=== PATIENT | female | born 1960 | race Caucasian/White ===

== ENCOUNTER 2020-02-14 16:49 | Inpatient (IN) | payer OTHER ==
[~2020-02-14] VITALS: Ht 157.5 cm; Wt 62.7 kg
[2020-02-14 17:30] VITALS: BP 125/70
--- NOTE | 2020-02-14 17:49 | NUR ---
RECEIVED PT FROM ADMISSIONS. PT IS AAO AND UP AD LISANDRO. PT ORIENTED TO ROOM. QUICKSTART, MED REQ, AND HISTORY COMPLETE. 2L 02 APPLIED. VSS AND WNL. NO S/S OF DISTRESS NOTED. PT DENIES ANY NEEDS. R.AC 20GA STARTED X1 ATTEMPT. PT TOLERATED WELL. WILL CTM.
[2020-02-14 18:27] LABS: CALC OSMOLALITY 275 mosm/kg (275-300); CALCIUM 8.9 mg/dL (8.5-10.1); CARBON DIOXIDE 27.6 mmol/L (21.0-32.0); CHLORIDE - SERUM 102 mmol/L (98-107); CREATININE - SERUM 0.8 mg/dL (0.6-1.3); GLUCOSE 112 mg/dL (74-106); POTASSIUM - SERUM 3.8 mmol/L (3.5-5.1); SODIUM 138 mmol/L (136-145); UREA NITROGEN 11 mg/dL (7-18); eGFR NON AFRICAN AMERICAN 78 mL/min (90-120)
[2020-02-14 18:37] LABS: BASOPHILS 0.2 % (0-2); EOSINOPHILS 0.6 % (0-7); HEMATOCRIT 46.1 % (36.0-48.0); HEMOGLOBIN 15.3 g/dL (12-16); IMMATURE GRANULOCYTES 0.2 % (0-5); LYMPHOCYTES 14.6 % (15-50); MCH 31.9 pg (26.0-34.0); MCHC 33.2 g/dL (31.0-37.0); MCV 96.2 fL (80.0-100.0); MEAN PLATELET VOLUME 9.7 fL (7.4-10.4); MONOCYTES 10.6 % (2-11); NEUTROPHILS 73.8 % (40-80); PLATELET COUNT 260 10x3/uL (130-400); RBC 4.79 10x6/uL (4.00-5.40); RDW 12.6 % (11.5-14.5)
[2020-02-14 18:44] LABS: ALBUMIN 3.4 g/dL (3.4-5.0); ALKALINE PHOSPHATASE 90 U/L (30-120); ALT (SGPT) 29 U/L (10-68); BILIRUBIN - TOTAL 0.45 mg/dL (0.2-1.3); CREATINE KINASE 200 UL (21-215); PROTEIN - SERUM 7.5 g/dL (6.4-8.2); TROPONIN-I 0.048 ng/mL (0.000-0.060)
--- NOTE | 2020-02-14 19:45 | NUR ---
PT SITTING UP ON SIDE OF BED NO SIGNS OF DISTRESS NOTED. SOME NON PRODUCTIVE COUGH. RESPIRATIONS EVEN AND UNLABORED. CALL LIGHT WITH IN REACH. NO COMPLAINTS AT THIS TIME. WILL CONTINUE TO MONITOR
[2020-02-14 20:27] VITALS: BP 114/61
[2020-02-15 03:45] VITALS: BP 115/83
[2020-02-15 03:50] LABS: BILIRUBIN NEGATIVE (NEGATIVE); GLUCOSE NEGATIVE (NEGATIVE); KETONE NEGATIVE (NEGATIVE); NITRITE NEGATIVE (NEGATIVE); SPECIFIC GRAVITY 1.005 (1.005-1.020); UROBILINOGEN NORMAL (NORMAL)
--- NOTE | 2020-02-15 05:21 | NUR ---
PT C/O NAUSEA PRN ZOFRAN GIVEN CALL LIGHT WITH IN REACH WILL CONTINUE TO MONITOR. UA COLLECTED AND SENT TO LAB
[2020-02-15 06:47] LABS: BASOPHILS 0.2 % (0-2); EOSINOPHILS 0.2 % (0-7); HEMATOCRIT 42.3 % (36.0-48.0); HEMOGLOBIN 14.3 g/dL (12-16); IMMATURE GRANULOCYTES 0.2 % (0-5); LYMPHOCYTES 11.8 % (15-50); MCH 32.2 pg (26.0-34.0); MCHC 33.8 g/dL (31.0-37.0); MCV 95.3 fL (80.0-100.0); MEAN PLATELET VOLUME 9.5 fL (7.4-10.4); MONOCYTES 10.3 % (2-11); NEUTROPHILS 77.3 % (40-80); PLATELET COUNT 253 10x3/uL (130-400); RBC 4.44 10x6/uL (4.00-5.40); RDW 12.6 % (11.5-14.5); WBC 12.9 10x3/uL (4.8-10.8)
--- NOTE | 2020-02-15 07:10 | NUR ---
REPORT RECEIVED FROM HOSPITAL MEDICINE DIRECTOR AND PATIENT CARE ASSUMED. PATIENT LAYING IN BED AWAKE, ALERT AND ORIENTED X 4. PATIENT DENIES ANY NEEDS OR PAIN. WILL CONTINUE WITH PLAN OF CARE, SR UPX 2 BED IN LOW POSITION AND CALL LIGHT IN REACH.
[2020-02-15 07:21] LABS: CALC OSMOLALITY 277 mosm/kg (275-300); CALCIUM 8.2 mg/dL (8.5-10.1); CARBON DIOXIDE 25.1 mmol/L (21.0-32.0); CHLORIDE - SERUM 104 mmol/L (98-107); CREATININE - SERUM 0.7 mg/dL (0.6-1.3); GLUCOSE 118 mg/dL (74-106); MAGNESIUM - SERUM 1.9 mg/dL (1.8-2.4); PHOSPHOROUS 3.2 mg/dL (2.5-4.9); POTASSIUM - SERUM 3.5 mmol/L (3.5-5.1); SODIUM 140 mmol/L (136-145); THYROID STIMULATING HORMONE 0.63 uIU/mL (0.36-3.74); eGFR NON AFRICAN AMERICAN > 90 mL/min (90-120)
[2020-02-15 07:23] LABS: UREA NITROGEN 8 mg/dL (7-18)
[2020-02-15 10:25] VITALS: BP 104/49
[2020-02-15 12:36] VITALS: Ht 157.5 cm; Wt 62.7 kg
[2020-02-15 12:50] VITALS: BP 98/58
--- NOTE | 2020-02-15 18:00 | NUR ---
PATIENT UNCHANGED. PATIENT DENIES ANY NEEDS OR PAIN. WILL CONTINUE TO MONITOR. SR UP X 2 BED IN LOW POSITION AND CALL LIGHT IN REACH.
--- NOTE | 2020-02-15 19:33 | NUR ---
RECEIVED UP IN BED WITH EYES OPEN AND TV ON. STATED " I FEEL BETTER NOW". RESP EVEN AND UNLABORED. DOES BECOME SOB WHEN SPEAKING. O2@ 4 LITERS PER NC. IV TO LT HAND WITH D5 AT 100CC/HR. ALERT AND ORIENTED. UP AD LISANDRO TO B/R. SAID SHE GETS SOB WITH AMBULATION. DENIES WEARING O2@ HOME. TELEMETRY IN PLACE.
[2020-02-15 20:53] VITALS: BP 114/64
[2020-02-16 02:39] VITALS: BP 99/71
[2020-02-16 06:09] LABS: BASOPHILS 0.2 % (0-2); EOSINOPHILS 1.8 % (0-7); HEMATOCRIT 39.5 % (36.0-48.0); HEMOGLOBIN 13.2 g/dL (12-16); IMMATURE GRANULOCYTES 0.2 % (0-5); LYMPHOCYTES 20.2 % (15-50); MCH 31.7 pg (26.0-34.0); MCHC 33.4 g/dL (31.0-37.0); MEAN PLATELET VOLUME 9.5 fL (7.4-10.4); MONOCYTES 11.6 % (2-11); PLATELET COUNT 274 10x3/uL (130-400); RBC 4.16 10x6/uL (4.00-5.40); RDW 12.9 % (11.5-14.5); WBC 9.7 10x3/uL (4.8-10.8)
[2020-02-16 06:18] LABS: CALC OSMOLALITY 279 mosm/kg (275-300); CALCIUM 8.2 mg/dL (8.5-10.1); CARBON DIOXIDE 25.7 mmol/L (21.0-32.0); CHLORIDE - SERUM 106 mmol/L (98-107); CREATININE - SERUM 0.4 mg/dL (0.6-1.3); GLUCOSE 116 mg/dL (74-106); MAGNESIUM - SERUM 2.1 mg/dL (1.8-2.4); PHOSPHOROUS 3.4 mg/dL (2.5-4.9); POTASSIUM - SERUM 3.5 mmol/L (3.5-5.1); SODIUM 141 mmol/L (136-145); UREA NITROGEN 7 mg/dL (7-18); eGFR NON AFRICAN AMERICAN > 90 mL/min (90-120)
--- NOTE | 2020-02-16 08:00 | NUR ---
PT SITTING UP IN BED. RR EVEN AND UNLABORED. DENIES NEEDS OR PAIN AT THIS TIME. CALL LIGHT WITHIN REACH. BED IN LOWEST POSITION. ASSESSMENT COMPLETE. WILL CONTINUE TO MONITOR.
[2020-02-16 09:17] VITALS: BP 99/60
[2020-02-16 11:57] VITALS: BP 101/64
--- NOTE | 2020-02-16 18:46 | NUR ---
CALL RECIEVED FROM MONICA SCHULTZ, PT IS NEGATIVE FOR COVID. TRANSFERED TO 2106
--- NOTE | 2020-02-16 18:54 | NUR ---
I have reviewed this patient and I concur with the Shift Assessment completed by the Licensed Practical Nurse today this shift.
[2020-02-16 20:00] VITALS: BP 122/74
[2020-02-17 04:00] VITALS: BP 99/52
[2020-02-17 05:15] LABS: BASOPHILS 0.3 % (0-2); EOSINOPHILS 1.7 % (0-7); HEMATOCRIT 37.5 % (36.0-48.0); HEMOGLOBIN 12.5 g/dL (12-16); IMMATURE GRANULOCYTES 0.1 % (0-5); LYMPHOCYTES 18.8 % (15-50); MCH 31.8 pg (26.0-34.0); MCHC 33.3 g/dL (31.0-37.0); MCV 95.4 fL (80.0-100.0); MEAN PLATELET VOLUME 9.5 fL (7.4-10.4); MONOCYTES 9.6 % (2-11); NEUTROPHILS 69.5 % (40-80); PLATELET COUNT 318 10x3/uL (130-400); RBC 3.93 10x6/uL (4.00-5.40); RDW 12.5 % (11.5-14.5); WBC 8.7 10x3/uL (4.8-10.8)
[2020-02-17 05:52] LABS: CALCIUM 8.3 mg/dL (8.5-10.1); CARBON DIOXIDE 25.1 mmol/L (21.0-32.0); CHLORIDE - SERUM 106 mmol/L (98-107); GLUCOSE 123 mg/dL (74-106); MAGNESIUM - SERUM 2.1 mg/dL (1.8-2.4); PHOSPHOROUS 3.4 mg/dL (2.5-4.9); POTASSIUM - SERUM 3.1 mmol/L (3.5-5.1); SODIUM 142 mmol/L (136-145)
[2020-02-17 05:54] LABS: CREATININE - SERUM 0.7 mg/dL (0.6-1.3); eGFR NON AFRICAN AMERICAN > 90 mL/min (90-120)
[2020-02-17 06:09] LABS: CALC OSMOLALITY 282 mosm/kg (275-300)
[2020-02-17 06:11] LABS: UREA NITROGEN 9 mg/dL (7-18)
--- NOTE | 2020-02-17 07:09 | NUR ---
RECEIVED REPORT. ASSUMED CARE OF PATIENT. CALL LIGHT WITHIN REACH. SR ON TELEMETRY, RATE 68.
[2020-02-17 10:35] VITALS: BP 115/60
--- NOTE | 2020-02-17 11:28 | NUR ---
PATIENT AMBULATING AROUND ROOM. NO DISTRESS. CALL LIGHT WITHIN REACH. RESP EVEN AND UNLABORED.
--- NOTE | 2020-02-17 14:41 | NUR ---
LINENS CHANGED, SHOWER COMPLETE. NO DISTRESS. CALL LIGHT WITHIN REACH.
--- NOTE | 2020-02-17 17:34 | NUR ---
SITTING IN BED, PM MEAL CONSUMED. DENIES NEEDS AT THIS TIME. NO DISTRESS.
--- NOTE | 2020-02-17 19:15 | NUR ---
RECEIVED REPORT, WILL ASSUME CARE OF PT, WATCHING TV, DENIES ANY NEEDS, BED IS LOW, SRX2, CALL LIGHT IN REACH, WILL CONTINUE PLAN OF CARE
[2020-02-17 20:00] VITALS: BP 113/69
[2020-02-18] VITALS: BP 119/70
[2020-02-18 04:00] VITALS: BP 113/65
[2020-02-18 06:32] LABS: BASOPHILS 0.2 % (0-2); EOSINOPHILS 0 % (0-7); HEMATOCRIT 37.5 % (36.0-48.0); HEMOGLOBIN 12.8 g/dL (12-16); IMMATURE GRANULOCYTES 0.5 % (0-5); LYMPHOCYTES 10.2 % (15-50); MCH 32.8 pg (26.0-34.0); MCHC 34.1 g/dL (31.0-37.0); MCV 96.2 fL (80.0-100.0); MEAN PLATELET VOLUME 9.6 fL (7.4-10.4); NEUTROPHILS 86.1 % (40-80); RDW 12.7 % (11.5-14.5)
[2020-02-18 06:36] LABS: PLATELET COUNT 409 10x3/uL (130-400); WBC 11.1 10x3/uL (4.8-10.8)
--- NOTE | 2020-02-18 06:46 | NUR ---
I have reviewed this patient and I concur with the Shift Assessment completed by the Licensed Practical Nurse today this shift.
[2020-02-18 06:53] LABS: CALC OSMOLALITY 285 mosm/kg (275-300); CALCIUM 8.5 mg/dL (8.5-10.1); CARBON DIOXIDE 23.9 mmol/L (21.0-32.0); CHLORIDE - SERUM 106 mmol/L (98-107); CREATININE - SERUM 0.6 mg/dL (0.6-1.3); GLUCOSE 173 mg/dL (74-106); MAGNESIUM - SERUM 2.2 mg/dL (1.8-2.4); PHOSPHOROUS 3.2 mg/dL (2.5-4.9); POTASSIUM - SERUM 4.2 mmol/L (3.5-5.1); SODIUM 142 mmol/L (136-145); UREA NITROGEN 10 mg/dL (7-18); eGFR NON AFRICAN AMERICAN > 90 mL/min (90-120)
[2020-02-18 08:00] VITALS: BP 115/67
--- NOTE | 2020-02-18 08:51 | NUR ---
AM MEDS GIVEN AT THIS TIME. PT IN BED. A/O X4, D/C LT FA IV DUE TO IV BEING TENDER AND RED. IV D/C WITH CATHETER TIP INTACT. PT STATES THAT SHE IS GOING HOME AND WANTS TO WAIT ON HAVING ANOTHER IV STARTED. PT DENIES ANY NEEDS AT THIS TIME, CALL LIGHT IN REACH, NAD NOTED, WILL CONTINUE TO MONITOR.
[2020-02-18 14:03] VITALS: BP 114/68
[2020-02-18] MEDS ORDERED: PROTONIX40 MG PO (15:24)
[2020-02-18] MEDS ORDERED: OMNICEF300 MG PO (15:24)
[2020-02-18] MEDS ORDERED: AZITHROMYCIN500 MG PO (15:24)
[2020-02-18] MEDS ORDERED: NICOTINE P1 PATCH .1 TRANSDERM (15:25)
[2020-02-18] MEDS ORDERED: SYMBICORT 80-10.2 GM INH (15:25)
[2020-02-18] MEDS ORDERED: PREDNISONE10 MG PO (15:30)
--- NOTE | 2020-02-18 16:10 | NUR ---
PROVIDED VERBAL AND WRITTEN DISCHARGE TEACHING TO PT, WHO VERBALIZED UNDERSTANDING REGARDING TEACHING. PT LEFT UNIT VIA WHEELCHAIR, WITH ALL BELONGINGS.
--- NOTE | 2020-02-19 07:29 | MORECARE ---
CASE MANAGEMENT DISCHARGE SUMMARY PATIENT: JEREMIE COOPER UNIT: [id number] ADM DATE: 02/14/20 AGE: 59 : 60 SEX: F ROOM/BED: D.2107 AUTHOR: ANGELITA SILVA PHYSICIAN: REFERRING PHYSICIAN: UTE SOLORZANO MD DATE OF SERVICE: 02/19/20 Discharge Plan Patient Name: [facility]ER[facility]IE COOPER [facility] [facility] 1960 Planned Disposition: Anticipated Discharge Date: Discharge Date: 02/18/2020 Expected LOS: 0 Initial Reviewer: [email or web address] Initial Review Date: 02/19/2020 Generated: 02/19/20 8:28 am Comments DCP- Discharge Planning Updated by [email or web address]: Ana Levy on 02/18/20 2:[address] Patient discharging today. PUlse ox is 93% on room air at rest and 90% on room air walking, she does not qualify for home oxygen. States she has a ride to pick her up. Declines needs. Patient Name: JEREMIE COOPER Page [phone] at 0729 All edits/amendments must be made on the electronic document DICTATION DATE: 02/19/20727 INDUSTRIAL SEWER: JAIEME 02/19/20727 RPT#: [id number] DC DATE:02/18/20 STATUS: DIS IN [facility] [address] [place] [address] END OF REPORT
== END 2020-02-18 16:40 | disposition home or self-care (01) | DRG 193 ==
LOC: D.M2 16:49
PROVIDERS: Family Medicine; ADMIT Emergency Medicine; ATTEND Emergency Medicine
DX: J18.9 Pneumonia, unspecified organism (principal); J96.01 Acute respiratory failure with hypoxia; J44.1 Chronic obstructive pulmonary disease with (acute) exacerbation; F17.203 Nicotine dependence unspecified, with withdrawal; J44.0 Chronic obstructive pulmonary disease with (acute) lower respiratory infection; R04.0 Epistaxis; I48.91 Unspecified atrial fibrillation